=== PATIENT | male | born 1980 | race American Indian/Alaskan Native ===

== ENCOUNTER 2021-09-09 13:00 | Emergency (ER) | payer SELFPAY ==
--- NOTE | 2021-09-09 13:44 | Emergency Department Report ---
Chief Complaint: Recheck/Abnormal Lab/Rx Stated Complaint: OUT OF MEDS Time Seen by Provider: 09/09/21 13:21 - HPI History of Present Illness: 41 year old male presents to ED requesting refill on his meds. Patient reports that he recently got released from prison June 2021. He states that while he was in prison he was diagnosed with hypertension and had to have a defibrillator pacemaker placed. At that time he was started on Coreg and Norvasc and was instructed to take a baby aspirin. Once he got released in June we will give him a 30-day supply until he can follow-up with a primary care doctor but patient states that he has been waiting for his medical insurance to activate which has not done so yet and therefore has not been able to follow-up with a PCP and so finally he came here to see if he can get refills. He reports no symptoms at this time. - Exam Vital Signs: Vital Signs 09/09/21 13:07 Temperature 98.3 F Pulse Rate 63 Respiratory 16 Rate Blood Pressure 175/110 [Left] O2 Sat by Pulse 99 Oximetry MSE screening note: Focused history and physical exam performed. Due to findings the following was ordered: ED Disposition for MSE Clinical Impression: Medication refill Disposition: 01 HOME / SELF CARE / HOMELESS Is pt being admited?: No Does the pt Need Aspirin: No Condition: Stable Instructions: Medicine Refill at the Emergency Department Additional Instructions: Continue taking baby aspirin 81 mg from [id number]. Recommend that you get your Norvasc and Coreg filled and start taking today. A list of primary care doctors will be listed on your discharge instructions and I recommend that you call to set up an appointment for follow-up. Return to the ER if your symptoms changes or worsens in any way. Prescriptions: amLODIPine 10 mg PO DAILY #30 tab carvediloL [Coreg] 6.25 mg PO BID 1 Days #60 tablet Referrals: ERWIN WHITE MD [Referring] - 3-5 Days SANAM ELMORE MD [Staff Physician] - 3-5 Days Time of Disposition: 13:46 ED Review of Systems ROS: Stated complaint: OUT OF MEDS Other details as noted in HPI Comment: All other systems reviewed and negative Respiratory: denies: cough, shortness of breath, wheezing Cardiovascular: denies: chest pain, palpitations Gastrointestinal: denies: abdominal pain, nausea, diarrhea Skin: denies: rash, lesions Neurological: denies: headache, weakness, numbness, paresthesias, confusion, abnormal gait, vertigo Psychiatric: denies: anxiety, depression, auditory hallucinations, visual hallucinations, homicidal thoughts, suicidal thoughts Hematological/Lymphatic: denies: easy bleeding, easy bruising, swollen glands ED Physical Exam - General Limitations: No Limitations General appearance: alert, in no apparent distress - Head Head exam: Present: atraumatic, normocephalic, normal inspection - Eye Eye exam: Present: normal appearance, PERRL, EOMI Pupils: Present: normal accommodation - Neck Neck exam: Present: normal inspection, full ROM - Respiratory Respiratory exam: Absent: respiratory distress - Cardiovascular Cardiovascular Exam: Present: regular rate. Absent: normal rhythm, normal heart sounds - Back Exam Back exam: Present: normal inspection, full ROM - Neurological Exam Neurological exam: Present: alert, oriented X3, CN II-XII intact, normal gait - Psychiatric Psychiatric exam: Present: normal affect, normal mood - Skin Skin exam: Present: intact
[2021-09-09 14:06] VITALS: BP 156/92
== END 2021-09-09 14:59 | disposition home or self-care (01) ==
LOC: ED 13:00
DX: I10 Essential (primary) hypertension (principal); Z76.0 Encounter for issue of repeat prescription
CPT/HCPCS: 99282

== ENCOUNTER 2021-11-23 20:23 | Emergency (ER) | payer SELFPAY | END 2021-11-24 23:50 | disposition left against medical advice (07) | LOC: ED 20:23 | DX: Z76.0 Encounter for issue of repeat prescription (principal); Z53.21 Procedure and treatment not carried out due to patient leaving prior to being seen by health care provider ==

== ENCOUNTER 2021-12-24 09:21 | Emergency (ER) | payer OTHER ==
[2021-12-24 10:08] VITALS: BP 161/100
--- NOTE | 2021-12-24 11:01 | Emergency Department Report ---
ED Recheck HPI - General Chief Complaint: Medical Clearance Stated Complaint: MED REFILL Time Seen by Provider: 12/24/21 10:57 Source: patient Mode of arrival: Ambulatory Limitations: No Limitations - History of Present Illness Initial Comments: 41-year-old black male with a past medical history of hypertension presents to the emergency department requesting medication refill. He states that he ran out of his amlodipine and Coreg a few days ago and is not scheduled to see his lead pony rider for the next few weeks and would like a refill of his medications. He denies chest pain, shortness of breath, nausea, vomiting, dizziness, and diaphoresis. He states that he does not have any complaints at this time. Complaint: medication refill request Returns Today for: request for prescription Context: ran out of medication Associated Symptoms: none - Related Data Previous Rx's Medication Instructions Recorded Last Taken Type amLODIPine 10 mg PO DAILY #30 tab 09/09/21 Unknown Rx carvediloL [Coreg] 6.25 mg PO BID 1 Days #60 tablet 09/09/21 Unknown Rx amLODIPine 10 mg PO DAILY #30 tab 12/24/21 Unknown Rx carvediloL [Coreg] 6.25 mg PO BID #60 tablet 12/24/21 Unknown Rx Allergies Allergy/AdvReac Type Severity Reaction Status Date / Time No Known Allergies Allergy Verified 09/09/21 13:07 ED Review of Systems ROS: Stated complaint: MED REFILL Other details as noted in HPI Comment: All other systems reviewed and negative Constitutional: denies: chills, diaphoresis, fever, weakness Eyes: denies: vision change ENT: denies: congestion Respiratory: denies: shortness of breath Cardiovascular: denies: chest pain, palpitations Gastrointestinal: denies: abdominal pain, nausea, vomiting Musculoskeletal: denies: back pain Neurological: denies: headache, weakness ED Past Medical Hx - Past Medical History Previous Medical History?: Yes Hx Hypertension: Yes - Medications Home Medications: Home Medications Medication Instructions Recorded Confirmed Last Taken Type amLODIPine 10 mg PO DAILY #30 tab 09/09/21 Unknown Rx carvediloL [Coreg] 6.25 mg PO BID 1 Days #60 tablet 09/09/21 Unknown Rx amLODIPine 10 mg PO DAILY #30 tab 12/24/21 Unknown Rx carvediloL [Coreg] 6.25 mg PO BID #60 tablet 12/24/21 Unknown Rx ED Physical Exam - General Limitations: No Limitations General appearance: alert, in no apparent distress - Head Head exam: Present: atraumatic, normocephalic - Eye Eye exam: Present: normal appearance. Absent: conjunctival injection - Neck Neck exam: Present: normal inspection - Respiratory Respiratory exam: Present: normal lung sounds bilaterally. Absent: respiratory distress, wheezes, rales, rhonchi, stridor, chest wall tenderness - Cardiovascular Cardiovascular Exam: Present: regular rate, normal heart sounds - GI/Abdominal GI/Abdominal exam: Present: soft, normal bowel sounds. Absent: distended, tenderness, guarding, rebound, rigid - Extremities Exam Extremities exam: Present: normal inspection, normal capillary refill. Absent: pedal edema, joint swelling, calf tenderness - Back Exam Back exam: Present: normal inspection. Absent: tenderness, CVA tenderness (R), CVA tenderness (L), vertebral tenderness - Neurological Exam Neurological exam: Present: alert, oriented X3, normal gait - Psychiatric Psychiatric exam: Present: normal affect, normal mood - Skin Skin exam: Present: warm, dry, intact, normal color ED Course Vital Signs 12/24/21 10:06 Temperature 97.4 F L Pulse Rate 63 Respiratory 16 Rate Blood Pressure 161/100 [Right] O2 Sat by Pulse 100 Oximetry ED Recheck MDM - Differential Diagnosis Prescription Refill(s) - Medical Decision Making 41-year-old black male with a past medical history of hypertension presents to the emergency department requesting medication refill. He states that he ran out of his amlodipine and Coreg a few days ago and is not scheduled to see his lead pony rider for the next few weeks and would like a refill of his medications. He denies chest pain, shortness of breath, nausea, vomiting, dizziness, and diaphoresis. He states that he does not have any complaints at this time. Patient without complaints at this time and states that he has an appointment scheduled with his lead pony rider, so he will get a 1 month refill of his amlodipine and Coreg and encouragement to keep his planned appointment with his lead pony rider. He verbalizes understanding of and agreement with plan of care Critical care attestation.: If time is entered above; I have spent that time in minutes in the direct care of this critically ill patient, excluding procedure time. ED Disposition Clinical Impression: Medication refill Disposition: 01 HOME / SELF CARE / HOMELESS Is pt being admited?: No Does the pt Need Aspirin: No Condition: Stable Instructions: Carvedilol tablets, Amlodipine tablets Additional Instructions: Take medications as prescribed. Follow-up with cardiology as planned. Return to the emergency department as needed. Prescriptions: amLODIPine 10 mg PO DAILY #30 tab carvediloL [Coreg] 6.25 mg PO BID #60 tablet Referrals: NIKKO JETT MD [Staff Physician] - 3-5 Days SANAM ELMORE MD [Staff Physician] - 3-5 Days Forms: Work/School Release Form(ED) Time of Disposition: 11:00
== END 2021-12-24 12:42 | disposition home or self-care (01) ==
LOC: ED 09:21
DX: I10 Essential (primary) hypertension (principal); Z76.0 Encounter for issue of repeat prescription; Z79.899 Other long term (current) drug therapy
CPT/HCPCS: 99282

== ENCOUNTER 2022-02-26 16:10 | Emergency (ER) | payer OTHER ==
--- NOTE | 2022-02-26 16:44 | Emergency Department Report ---
ED General Adult HPI - General Chief complaint: Medical Clearance Stated complaint: MEDICATION REFILL Time Seen by Provider: 02/26/22 16:37 Source: patient Mode of arrival: Ambulatory Limitations: No Limitations - History of Present Illness Initial comments: Is a 41-year-old male who presents for medication refill. Patient denies symptoms patient has history of hypertension controlled with Coreg and amlodipine POV patient has no SI on PCP however cannot see his PCP until the 15th. Patient denies chest pain no dizziness no lightheadedness no nausea no vomiting no diaphoresis. Patient is alert oriented x3 amatory steady gait and demonstrates appropriate mentation. - Related Data Previous Rx's Medication Instructions Recorded Last Taken Type carvediloL [Coreg] 6.25 mg PO BID 1 Days #60 tablet 09/09/21 Unknown Rx amLODIPine 10 mg PO DAILY #30 tab 12/24/21 Unknown Rx amLODIPine 10 mg PO DAILY #30 tab 02/26/22 Unknown Rx carvediloL [Coreg] 6.25 mg PO BID #60 tablet 02/26/22 Unknown Rx Allergies Allergy/AdvReac Type Severity Reaction Status Date / Time Penicillins Allergy Anaphylaxis Verified 02/26/22 16:36 ED Review of Systems ROS: Stated complaint: MEDICATION REFILL Other details as noted in HPI Constitutional: denies: chills, fever Eyes: denies: eye pain, eye discharge, vision change ENT: denies: ear pain, throat pain Respiratory: denies: cough, shortness of breath, wheezing Cardiovascular: denies: chest pain, palpitations Endocrine: no symptoms reported Gastrointestinal: denies: abdominal pain, nausea, diarrhea Genitourinary: denies: urgency, dysuria Musculoskeletal: denies: back pain, joint swelling, arthralgia Skin: denies: rash, lesions Neurological: denies: headache, weakness, paresthesias Psychiatric: denies: anxiety, depression Hematological/Lymphatic: denies: easy bleeding, easy bruising ED Past Medical Hx - Past Medical History Hx Hypertension: Yes - Medications Home Medications: Home Medications Medication Instructions Recorded Confirmed Last Taken Type carvediloL [Coreg] 6.25 mg PO BID 1 Days #60 tablet 09/09/21 Unknown Rx amLODIPine 10 mg PO DAILY #30 tab 12/24/21 Unknown Rx amLODIPine 10 mg PO DAILY #30 tab 02/26/22 Unknown Rx carvediloL [Coreg] 6.25 mg PO BID #60 tablet 02/26/22 Unknown Rx ED Physical Exam - General Limitations: No Limitations General appearance: alert, in no apparent distress - Head Head exam: Present: normocephalic, normal inspection - Eye Eye exam: Present: normal appearance, PERRL, EOMI Pupils: Present: normal accommodation - ENT ENT exam: Present: mucous membranes moist - Neck Neck exam: Present: normal inspection, full ROM. Absent: lymphadenopathy - Respiratory Respiratory exam: Present: normal lung sounds bilaterally. Absent: respiratory distress, wheezes, stridor - Cardiovascular Cardiovascular Exam: Present: regular rate, normal rhythm, normal heart sounds. Absent: systolic murmur, diastolic murmur, rubs, gallop - GI/Abdominal GI/Abdominal exam: Present: soft, normal bowel sounds. Absent: distended, tenderness - Rectal Rectal exam: Present: deferred - Extremities Exam Extremities exam: Present: normal inspection, full ROM, normal capillary refill - Back Exam Back exam: Present: normal inspection, full ROM - Neurological Exam Neurological exam: Present: alert, oriented X3, CN II-XII intact, normal gait - Expanded Neurological Exam Expanded Patient oriented to: Present: person, place, time Speech: Present: fluid speech Motor strength exam: RUE: 5, LUE: 5, RLE: 5, LLE: 5 Best Eye Response (Sam): (4) open spontaneously Best Motor Response ([place]): (6) obeys commands Best Verbal Response (Sam): (5) oriented Sam Total: 15 - Psychiatric Psychiatric exam: Present: normal affect, normal mood - Skin Skin exam: Present: warm, dry, intact, normal color. Absent: rash ED Course Vital Signs 02/26/22 16:34 Temperature 98 F Pulse Rate 73 Respiratory 18 Rate Blood Pressure 133/89 [Left] ED Medical Decision Making - Medical Decision Making Patient presents for medication refill, exam is normal, I will refill medications as requested until follow-up appointment with PCP. Patient will follow-up with PCP on the as scheduled. Patient DC'd home in stable condition at this time. Patient verbalized agreement understanding of discharge plan. Critical care attestation.: If time is entered above; I have spent that time in minutes in the direct care of this critically ill patient, excluding procedure time. ED Disposition Clinical Impression: Medication refill Disposition: HOME / SELF CARE / HOMELESS Is pt being admited?: No Does the pt Need Aspirin: No Condition: Stable Instructions: Hypertension, Adult, Medicine Refill at the Emergency Department Additional Instructions: Medications as prescribed follow-up with your doctor on March 07, 2022 as scheduled. Return to emergency department should symptoms worsen. Prescriptions: amLODIPine 10 mg PO DAILY #30 tab carvediloL [Coreg] 6.25 mg PO BID #60 tablet Referrals: SANAM ELMORE MD [Staff Physician] - 3-5 Days Forms: Work/School Release Form(ED) Time of Disposition: 16:45
[2022-02-26 18:03] VITALS: BP 141/90
== END 2022-02-26 17:50 | disposition home or self-care (01) ==
LOC: ED 16:10
DX: I10 Essential (primary) hypertension (principal); Z76.0 Encounter for issue of repeat prescription; Z88.0 Allergy status to penicillin
CPT/HCPCS: 99282